=== PATIENT | male | born 1965 | race African-American/Black ===

== ENCOUNTER 2016-04-19 10:46 | Emergency (ER) | payer OTHER ==
[~2016-04-19] VITALS: Wt 105.0 kg
[~2016-04-19 10:46] MED LIST: ACET500C5 PO; BACTDS PO; CEPH-443 PO; HYDR-3498 PO; IBUP-1542 PO; IBUP800T25 PO; ULT50 PO
[2016-04-19 10:54] VITALS: Wt 105.0 kg
[2016-04-19] MEDS ORDERED: SOD CHLORIDE 0.9% 1,000 ML IV STA (11:25)
[2016-04-19] MEDS ORDERED: CLINDAMYCIN 600 MG/D5W (PMX) 50 ML IVPB SCH (11:30)
[2016-04-19] MEDS ORDERED: CLIN-73 PO (11:47)
[2016-04-19] MEDS ORDERED: NAPR-260 PO (11:47)
[2016-04-19] MEDS ORDERED: HYDR-906 PO (11:47)
[2016-04-19 13:06] VITALS: BP 117/66; PULSE 79; RESP 16; TEMP 97.8
--- NOTE | 2016-04-19 17:11 | ERD ---
DATE OF SERVICE: 04/19/2016 HISTORY OF PRESENT ILLNESS: The patient is a 50-year-old male coming in complaining of right knee p ain for the last 2 months; however, he feels that over the last 2 days, it has gotten worse. He has noted some swelling over his right knee. He states it hurts to move. He has had no fevers. He logan s not taken medications for the symptoms. He has never had this before. He works as a construction tech and kneels frequently. He does not wear knee pads. He is up-to-date on his tetanus shot. PAST MEDICAL HISTORY: Denies medical problems. ALLERGIES: DENIES ALLERGIES TO MEDICATIONS. PAST SURGICAL HISTORY: Appendectomy. SOCIAL HISTORY: Denies. REVIEW OF SYSTEMS: A 12-point review of systems was done. Refer to HPI for positives, all other sy stems negative. PHYSICAL EXAMINATION VITAL SIGNS: Temperature 98, pulse 78. Blood pressure is 134/78, respiratory rate 18, O2 sat 99% o n room air. Pain intensity is 0/10. GENERAL: The patient is well-appearing, well-nourished, in no acute distress. HEART: Regular rate and rhythm. No murmurs, clicks, rubs or gallops. No S3 or S4. CHEST: Clear to auscultation bilaterally. There are no rales, wheezes or rhonchi. HEENT: Atraumatic. Conjunctivae are pink. Pupils equal, round, and reactive to light. There is no s cleral icterus. Tympanic membranes clear bilaterally. Oropharynx clear. No nystagmus or photophobia . ABDOMEN: Soft, nontender and nondistended. Good bowel sounds. No rebound or guarding. No gross bertha tonitis. No gross organomegaly or masses. No Faith sign or McBurney point tenderness. EXTREMITIES: The patient has tenderness to palpation over the frontal aspect of the right knee over the knee bursa. There is no swelling or warmth to the joint space. The patient has normal flexion /extension at the knee joint with no limitations. No valgus or varus deformity. No calf tenderness . SKIN: Mild erythema noted to the anterior portion of the right knee. There is no lymphatic streak ing. DIAGNOSIS: Knee bursitis. EMERGENCY ROOM COURSE: The patient was given a liter of normal saline and IV clindamycin. The camilo ent does not need tetanus shot today. MEDICAL DECISION MAKING: I have low suspicion for septic joint. The patient does not have pain wit hin the joint space. The patient's pain is localized over the bursa of the right knee. He will be treated with antibiotics. I have low suspicion for DVT, low suspicion for deep tracking infection o r lymphatic infection, low suspicion for compartment syndrome. DISCHARGE: The patient is discharged stable. The patient given prescription for clindamycin, [place] , and naproxen; told to follow up with primary care within 1 to 2 days for reevaluation. The patien t was told if symptoms progress or worsen, to return to the ER. All other questions answered at barb e of discharge. Discharge summary given at the time of departure. The patient understood and compl ied with plan. Dictated By: PEBBLES RECINOS PA for YARIEL GEE/MANISH Conf#: [id number] DID#: [id number]
== END 2016-04-19 13:07 | disposition home or self-care (01) ==
LOC: FTE 10:46
DX: M70.51 Other bursitis of knee, right knee (principal); Y93.9 Activity, unspecified
CPT/HCPCS: 96374; J7030; Z7502; Z7610

== ENCOUNTER 2016-05-15 10:55 | Emergency (ER) | payer OTHER ==
[~2016-05-15] VITALS: Wt 106.0 kg
[~2016-05-15 10:55] MED LIST changes: +CLIN-73 PO; +HYDR-906 PO; +NAPR-260 PO; +TRAM50TA2 PO; -ULT50 PO
[2016-05-15 12:21] LABS: BASOPHIL # 0.1 10^3/ul (0.0-0.1); BASOPHILS % 0.5 % (0.0-2.0); EOSINOPHILS # 0.2 10^3/ul (0.0-0.5); EOSINOPHILS % 1.5 % (0.0-7.0); HEMATOCRIT 41.3 % (42.0-52.0); HEMOGLOBIN 13.9 g/dl (14.0-18.0); LYMPHOCYTES # 2.5 10^3/ul (0.8-2.9); LYMPHOCYTES % 22.4 % (15.0-51.0); MEAN CORPUSCULAR HEMOGLOBIN 30.4 pg (29.0-33.0); MEAN CORPUSCULAR HGB CONC 33.5 g/dl (32.0-37.0); MEAN CORPUSCULAR VOLUME 90.7 fl (82.0-101.0); MONOCYTE # 1.1 10^3/ul (0.3-0.9); MONOCYTES % 9.9 % (0.0-11.0); NEUTROPHIL # 7.3 10^3/ul (1.6-7.5); NEUTROPHILS % 65.7 % (39.0-77.0); PLATELET COUNT 236 10^3/UL (140-440); RED BLOOD COUNT 4.56 10^6/ul (4.70-6.10); UNCORRECTED WBC 11.1 10^3/ul (4.8-10.8); WHITE BLOOD COUNT 11.1 10^3/ul (4.8-10.8)
[2016-05-15 12:27] LABS: ALBUMIN 3.3 g/dl (3.3-4.9); POTASSIUM 4.8 mmol/L (3.5-5.1)
[2016-05-15 12:29] LABS: BILIRUBIN,INDIRECT 0.5 mg/dl (0-1.1); BILIRUBIN,TOTAL 0.5 mg/dl (0.2-1.3); CREATININE 1.04 mg/dl (0.61-1.24)
[2016-05-15 12:30] LABS: ALBUMIN/GLOBULIN RATIO 0.82; CONDITION 1; LH ANALYZER COMMENTS 1; TOTAL PROTEIN 7.3 g/dl (6.1-8.1)
[2016-05-15 12:31] LABS: CALCIUM 8.9 mg/dl (8.4-10.2)
[2016-05-15 12:33] LABS: C-REACTIVE PROTEIN 4.5 mg/dl (0.0-0.9)
--- NOTE | 2016-05-15 13:32 | RADRPT ---
PROCEDURE: XR Knee 3 Views. CLINICAL INDICATION: Right knee pain TECHNIQUE: AP, tunnel and oblique view of the right knee were obtained. The images reviewed on a PACS workstation. COMPARISON: None. FINDINGS: The osseous structures are intact. No destructive bony lesions are observed. Mild narrowing of the lateral joint compartment is identified. Soft tissues are unremarkable. 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 If there is high clinical suspicion for traumatic injury, further evaluation with CT should be consi dered. If further characterization is needed CT or MRI could be helpful. RPTAT: AA .Matthew Valladares MD, Date Time Electronically viewed and signed by .Matthew Valladares MD, on 05/15/2016 13:31 .P/
[2016-05-15] MEDS ORDERED: BACTDS PO (13:39)
[2016-05-15] MEDS ORDERED: CEPH-443 PO (13:40)
[2016-05-15] MEDS ORDERED: IBUP-1542 PO (13:40)
--- NOTE | 2016-05-15 13:48 | ERD ---
ER Documentation Chief Complaint Date/Time DATE: 05/15/16 TIME: 13:44 Chief Complaint SWELLING AND REDNESS 4 WKS AGO. NO RECENT FEVERS DRAINAGE NOTED. HPI Patient is 51-year-old male with a past medical history of bursitis of the right knee who presents to the emergency department with swelling and redness to his right anterior knee. Patient states he was seen here in the ER approximately 1 month ago and diagnosed with bursitis. At that time was prescribed clindamycin. Patient reports taking full course of antibiotics. Patient states that over the last 4 weeks since previous ER visit his swelling and redness has been getting worse. Patient has some "yellow drainage" from anterior knee. Patient reports moderate pain. Patient is able to ambulate without any difficulty. Patient is able to bend his knee with minimal pain.Patient denies any new trauma or falls. Patient denies any fever, chills, nausea, vomiting, loss of consciousness. 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 Patient denies wearing knee pads. Patient reports history of "shattering right kneecap," however denies surgical repair. ROS All systems reviewed and are negative except as per history of present illness. Medications Home Meds Active Scripts Ibuprofen* (Motrin*) 600 Mg Tab, 600 MG PO Q6, #30 TAB Prov:DANIKA FERNANDEZ PA-C 05/15/16 Cephalexin* (Keflex*) 500 Mg Capsule, 500 MG PO TID for 10 Days, CAP Prov:DANIKA FERNANDEZ PA-C 05/15/16 Sulfamethoxazole-Trimethoprim* (Bactrim* DS) 800-160 Mg Tab, 1 TAB PO BID for 10 Days, TAB Prov:DANIKA FERNANDEZ PA-C 05/15/16 Hydrocodone/Acetaminophen (Silt 5-325 Tablet) 1 Each Tablet, 1 TAB PO Q6H Y for PAIN, #7 TAB Prov:JAH RECINOS PA-C 04/19/16 Naproxen* (Naprosyn*) 500 Mg Tablet, 500 MG PO BID Y for PAIN AND/OR INFLAMMATION, #30 TAB Prov:JAH RECINOS PA-C 04/19/16 Clindamycin Hcl* (Clindamycin Hcl*) 300 Mg Capsule, 600 MG PO TID for 14 Days, CAP Prov:JAH RECINOSC 04/19/16 Acetaminophen* (Tylophen*) 500 Mg Capsule, 1 CAP PO Q6H Y for PAIN AND OR ELEVATED TEMP, #20 CAP Prov:RONAK CORTES NP 02/13/16 Cephalexin* (Keflex*) 500 Mg Capsule, 500 MG PO QID for 5 Days, CAP Prov:RONAK CORTES NP 02/13/16 Sulfamethoxazole-Trimethoprim* (Bactrim* DS) 800-160 Mg Tab, 1 TAB PO BID for 7 Days, TAB Prov:JORDANA AGUILERAC 12/16/15 Cephalexin* (Keflex*) 500 Mg Capsule, 500 MG PO QID for 7 Days, CAP Prov:JORDANA AGUILERAC 12/16/15 Ibuprofen* (Motrin*) 800 Mg Tab, 800 MG PO Q6, #30 TAB Prov:JORDANA AGUILERAC 12/16/15 Tramadol HCl (Tramadol HCl) 50 Mg Tablet, 50 MG PO Q4 Y for PAIN, #20 TAB Prov:JORDANA AGUILERAC 12/16/15 Hydrocodone Bit-Acetaminophen* (Silt*) 5-325 Mg Tab, 1 TAB PO Q6 Y for PAIN, # 20 TAB Prov:RONAK CORTES NP 10/15/15 Ibuprofen* (Motrin*) 600 Mg Tab, 600 MG PO Q6H Y for PAIN AND OR ELEVATED TEMP, #30 TAB Prov:RONAK CORTES NP 10/15/15 Cephalexin* (Keflex*) 500 Mg Capsule, 500 MG PO QID for 10 Days, CAP Prov:RONAK CORTES NP 10/15/15 Sulfamethoxazole-Trimethoprim* (Bactrim* DS) 800-160 Mg Tab, 1 TAB PO BID for 10 Days, TAB Prov:RONAK CORTES NP 10/15/15 Sulfamethoxazole-Trimethoprim* (Bactrim* DS) 800-160 Mg Tab, 1 TAB PO BID, #14 TAB 0 Refills Prov:YUNG PARRISHC 07/09/15 Cephalexin* (Keflex*) 500 Mg Capsule, 500 MG PO QID, #28 CAP 0 Refills Prov:FRANCOISYUNG EMILY 07/09/15 Allergies Allergies: Coded Allergies: No Known Allergy (Unverified , 05/15/16) PMhx/Soc History of Surgery: Yes (appendectomy) Anesthesia Reaction: No Hx Neurological Disorder: No Hx Respiratory Disorders: No Hx Cardiac Disorders: No Hx Psychiatric Problems: No Hx Miscellaneous Medical Probl: Yes (R knee bursitis) Hx Alcohol Use: No Hx Substance Use: No Hx Tobacco Use: Yes Smoking Status: Current every day smoker FmHx Family History: No diabetes Physical Exam Vitals Vital Signs Date Time Temp Pulse Resp B/P Pulse Ox O2 Delivery O2 Flow Rate FiO2 05/15/16 14:05 90 05/15/16 10:57 98.1 110 22 147/84 99 Physical Exam GENERAL: Well-developed, well-nourished male. Appears in no acute distress. HEAD: Normocephalic, atraumatic. EYES: Pupils are equally reactive bilaterally. EOMs grossly intact. No conjunctival erythema. ENT: Moist mucous membranes. No uvula deviation. No kissing tonsils. NECK: Supple. No meningismus. Normal range of motion of the neck. LUNG: Clear to auscultation bilaterally. No rhonchi, wheezing, rales or coarse breath sounds. HEART: Regular rate and rhythm. No murmurs, rubs or gallops. EXTREMITIES: Equal pulses bilaterally. No peripheral clubbing, cyanosis or edema. No unilateral leg swelling. NEUROLOGIC: Alert and oriented. Moving all four extremities without any difficulty. Normal speech. Steady gait. SKIN: Normal color. Warm and dry. No rashes or lesions. RIGHT KNEE: No obvious deformity. +Erythema and thickening of anterior knee skin. +Swelling to anterior knee. No warmth. No joint effusion. Purulent discharge expressed from anterior knee. Full ROM of knee. Tenderness to palpation of the anterior knee. No valgus/varus instability. Sensation intact to light touch. Neurovascularly intact. (Able to plantarflex, dorsiflex, purnima foot, invert foot, raise big toe.) 2+ DP and DT pulses. No tender to palpation of thigh, tibia and fibula. No calf tenderness. Result Diagram: 05/15/16 1205 05/15/16 1205 Results 24 hrs Laboratory Tests Test 05/15/16 12:05 Alanine Aminotransferase (ALT/SGPT) 43IU/L Albumin 3.3g/dl Albumin/Globulin Ratio 0.82 Alkaline Phosphatase 105IU/L Anion Gap 13 Aspartate Amino Transf (AST/SGOT) 25IU/L Basophils # 0.110^3/ul Basophils % 0.5% Blood Morphology Comment Blood Urea Nitrogen 18mg/dl C-Reactive Protein 4.5mg/dl Calcium Level 8.9mg/dl Carbon Dioxide Level 31mmol/L Chloride Level 103mmol/L Creatinine 1.04mg/dl Direct Bilirubin 0.00mg/dl Eosinophils # 0.210^3/ul Eosinophils % 1.5% Globulin 4.00g/dl Glucose Level 86mg/dl Hematocrit 41.3% Hemoglobin 13.9g/dl Indirect Bilirubin 0.5mg/dl Lymphocytes # 2.510^3/ul Lymphocytes % 22.4% Mean Corpuscular Hemoglobin 30.4pg Mean Corpuscular Hemoglobin Concent 33.5g/dl Mean Corpuscular Volume 90.7fl Mean Platelet Volume 8.0fl Monocytes # 1.110^3/ul Monocytes % 9.9% Neutrophils # 7.310^3/ul Neutrophils % 65.7% Nucleated Red Blood Cells # 0.010^3/ul Nucleated Red Blood Cells % 0.0/100WBC Platelet Count 61568^3/UL Potassium Level 4.8mmol/L Red Blood Count 4.5610^6/ul Red Cell Distribution Width 15.0% Sodium Level 142mmol/L Total Bilirubin 0.5mg/dl Total Protein 7.3g/dl White Blood Count 11.110^3/ul Procedures/MDM ED COURSE: The patient was stable throughout ED course. I kept the patient and/or family informed of laboratory and diagnostic imaging results throughout the ED course. DIAGNOSTIC IMAGING: Read by radiologist. DIAGNOSTIC IMAGING REPORT Patient: LEROY WATERMAN : 1965 Age: 51 Sex: M MR #: [id number] DOS: 05/15/16 1241 Ordering MD: DANIKA FERNANDEZ PA-C Location: [facility] Room/Bed: PROCEDURE: XR Knee 3 Views. CLINICAL INDICATION: Right knee pain TECHNIQUE: AP, tunnel and oblique view of the right knee were obtained. The images reviewed on a PACS workstation. COMPARISON: None. FINDINGS: The osseous structures are intact. No destructive bony lesions are observed. Mild narrowing of the lateral joint compartment is identified. Soft tissues are unremarkable. 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 If there is high clinical suspicion for traumatic injury, further evaluation with CT should be considered. If further characterization is needed CT or MRI could be helpful. RPTAT: AA .Matthew Valladares MD, MD Date Time Electronically viewed and signed by .Matthew Valladares MD, MD on 05/15/2016 13:31 .P/ CC: DANIKA FERNANDEZ PA-C MEDICAL DECISION MAKING: This is a 51-year-old male who presents with right knee pain, swelling, erythema. Patient was seen here in the emergency department approximately one month ago for similar symptoms and diagnosed with bursitis. Patient states he completed a full course of clindamycin at that time. Patient states his symptoms are getting worse. Vital signs were reviewed. Patient was afebrile. Knee exam revealed erythema and thickening of anterior knee surface. +Purulent discharge noted. No joint effusion. No warmth. Patient had normal ROM of the knee, able to extend and flex right knee without difficulty. Right knee xrays showed mild osteoarthritis in the lateral joint compartment. Patient had a WBC count 11.1. CRP was 4.5. Given these findings, the patient's presentation is most consistent with right knee osteoarthritis and knee bursitis vs septic joint. Patient was examined by supervising physician, Dr. Baez. Dr. Baez and myself had a conversation with the patient about his presentation and current symptoms. Given that the patient has normal range of motion and no joint effusion, our suspicion for septic joint is low at this time, however the patient does understand that we are unable to rule out septic joint at this time. Given that the patient recently took PO antibiotics with no improvement of symptoms, patient was offered inpatient admission and IV antibiotics. Patient stated that he wished to try PO antibiotics again, and would return to the ED in for 2-3 days if symptoms do not improve or worsen. At this time, patient will be treated on an outpatient basis per his requests. I have a much lower clinical concern for femur fracture, patella fracture, tibial plateau fracture, gout, popliteal cyst , patellar tendinitis, osteomyelitis, deep abscess, DVT or compartment syndrome. At this time, unable to rule out any meniscus and knee ligament injuries. PRESCRIPTIONS: Ibuprofen, Keflex, Bactrim DISCHARGE: At this time, patient is stable for discharge and outpatient management. Patient advised to monitor his symptoms closely. Patient was advised to start PO antibiotics JONH. Patient was advised to the return to the ED in 2-3 days if his symptoms do not improve or worsen. RICE therapy and ROM exercises were advised to avoid stiffness. I have instructed the patient to follow-up with his/ her primary care physician in 1-2 days. I have discussed with the patient the possibility of needing to see an ingredient specialist for further workup and imaging if the pain persists. I have instructed the patient to promptly return to the ER for any new or worsening symptoms including increased pain, swelling, redness, warmth or fever. The patient and/or family expressed understanding of and agreement with this plan. All questions were answered. Home care instructions were provided. Departure Diagnosis: Primary Impression: Bursitis Condition: Stable Patient Instructions: What Is Bursitis? Referrals: COMMUNITY CLINICS YOU HAVE RECEIVED A MEDICAL SCREENING EXAM AND THE RESULTS INDICATE THAT YOU DO NOT HAVE A CONDITION THAT REQUIRES URGENT TREATMENT IN THE EMERGENCY DEPARTMENT. FURTHER EVALUATION AND TREATMENT OF YOUR CONDITION CAN WAIT UNTIL YOU ARE SEEN IN YOUR DOCTORS OFFICE WITHIN THE NEXT 1-2 DAYS. IT IS YOUR RESPONSIBILITY TO MAKE AN APPOINTMENT FOR FOLOW-UP CARE. IF YOU HAVE A PRIMARY DOCTOR --you should call your primary doctor and schedule an appointment IF YOU DO NOT HAVE A PRIMARY DOCTOR YOU CAN CALL OUR PHYSICIAN REFERRAL HOTLINE AT IF YOU CAN NOT AFFORD TO SEE A PHYSICIAN YOU CAN CHOSE FROM THE FOLLOWING [facility] [address] [facility] [address] [facility] [facility] [address] [facility] [address] [facility] [address] [facility] [address] [facility] [facility] YOU HAVE RECEIVED A MEDICAL SCREENING EXAM AND THE RESULTS INDICATE THAT YOU DO NOT HAVE A CONDITION THAT REQUIRES URGENT TREATMENT IN THE EMERGENCY DEPARTMENT. FURTHER EVALUATION AND TREATMENT OF YOUR CONDITION CAN WAIT UNTIL YOU ARE SEEN IN YOUR DOCTORS OFFICE WITHIN THE NEXT 1-2 DAYS. IT IS YOUR RESPONSIBILITY TO MAKE AN APPOINTMENT FOR FOLOW-UP CARE. IF YOU HAVE A PRIMARY DOCTOR --you should call your primary doctor and schedule and appointment IF YOU DO NOT HAVE A PRIMARY DOCTOR YOU CAN CALL OUR PHYSICIAN REFERRAL HOTLINE AT . IF YOU CAN NOT AFFORD TO SEE A PHYSICIAN YOU CAN CHOSE FROM THE FOLLOWING [facility] INSTIT[facility]IONS: [facility] [address] [place] [address] [facility] [address] [place], [place] [id number] [place] [address] [address] [place] [address] [facility] Hours: Mon-Fri 9:00 AM - 5:00 PM Additional Instructions: At this time, unable to rule out septic joint. Patient wishes to start p.o. antibiotics at this time. Patient is in agreement to return to the emergency department in 2-3 days if his symptoms worsen while taking p.o. antibiotics. Patient understands that he will require IV antibiotics if his symptoms do not improve. She advised to complete full course of antibiotics. Call your primary care doctor TOMORROW for an appointment during the next 1-2 days.See the doctor sooner or return here if your condition worsens before your appointment time. DANIKA FERNANDEZ PA-C May 15, 2016 13:47
[2016-05-15 14:05] VITALS: PULSE 90
== END 2016-05-15 14:10 | disposition home or self-care (01) ==
LOC: FTE 10:55
DX: M70.51 Other bursitis of knee, right knee (principal); F17.210 Nicotine dependence, cigarettes, uncomplicated; Y93.H3 Activity, building and construction
CPT/HCPCS: 36415; 73562; 80053; 85025; 86140; Z7502

== ENCOUNTER 2017-03-01 00:08 | Emergency (ER) | payer OTHER ==
[~2017-03-01] VITALS: Ht 188 cm; Wt 105.0 kg
[2017-03-01 00:11] VITALS: Ht 188 cm; Wt 105.0 kg
[2017-03-01] MEDS ORDERED: HYDROCODONE/APAP (10/325) TAB PO ONE (01:00)
--- NOTE | 2017-03-01 01:00 | RADRPT ---
PROCEDURE: CT Brain without contrast. CLINICAL INDICATION: Trauma. TECHNIQUE: A CT of the brain was performed utilizing axial imaging from the skull base through the vertex without IV contrast. Multiplanar reformatted images were made. Images were reviewed on a [id number] workstation. The CTDIvol is 45.01 mGy and the DLP is 810.25 mGycm. DICOM images are available. One or more of the following dose reduction techniques were utilized: 1.) Automated exposure control 2.) Adjustment of the mA +/- kV according to patient's size 3.) Use of iterative reconstruction technique. COMPARISON: None FINDINGS: There is no intracranial hemorrhage, mass effect, or midline shift. No extra-axial fluid collection is seen. The ventricles and sulci are normal in size and configuration. The density of the brain is normal, and the langley white matter differentiation appears well-preserved. The visualized paranasal sinuses and osseous structures are grossly unremarkable. IMPRESSION: 1. No evidence of acute intracranial pathology. 2. The brain is normal in appearance. RPTAT: UU Physician Karen Date Time Electronically viewed and signed by Physician Karen on 03/01/2017 01:00 RS/
--- NOTE | 2017-03-01 01:24 | RADRPT ---
PROCEDURE: X-ray left hand. CLINICAL INDICATION: Left hand trauma. TECHNIQUE: 3 views left hand. COMPARISON: 10/15/2015 FINDINGS: Study is limited secondary to demineralization and flexion of the fingers. No evident acute fracture otherwise identified. Soft tissues unremarkable. IMPRESSION: No acute fracture. RPTAT: UU Physician Karen Date Time Electronically viewed and signed by Nick Reza Physician on 03/01/2017 01:24 RS/
--- NOTE | 2017-03-01 01:26 | RADRPT ---
AMENDMENT: 03/01/2017 1:31:06 AM Garry Reza Md ADDENDUM: Correction: FINDINGS: Nondisplaced fracture of the midshaft left ulna. There is a likely butterfly fracture fra gment. On today's left elbow series there is evidence of fracture comminution. IMPRESSION: Nondisplaced fracture midshaft left ulna, with likely butterfly fracture fragment. PROCEDURE: X-ray left forearm. CLINICAL INDICATION: Trauma to the left forearm. TECHNIQUE: 2 views left forearm. COMPARISON: 07/09/2015. FINDINGS: Nondisplaced fracture of the midshaft left radius. There is a likely butterfly fracture fragment. Re maining osseous structures without acute fracture. IMPRESSION: Nondisplaced fracture of the midshaft left radius, with likely butterfly fracture fragment. RPTAT: UU Physician Karen Date Time Electronically viewed and signed by Physician Karen on 03/01/2017 01:33 RS/
--- NOTE | 2017-03-01 01:31 | RADRPT ---
PROCEDURE: X-ray left elbow. CLINICAL INDICATION: Trauma TECHNIQUE: 3 views left elbow COMPARISON: Left elbow plain film series dated 07/09/2015 FINDINGS: Nondisplaced comminuted fractures of the midshaft left ulna. No acute fracture or dislocation left e lbow. Small proximal ulnar enthesophyte. IMPRESSION: Nondisplaced comminuted fractures of the mid shaft left ulna, without acute fracture in the left elb ow. RPTAT: UU Physician Karen Date Time Electronically viewed and signed by Nick Reza Physician on 03/01/2017 01:30 RS/
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
[2017-03-01] MEDS ORDERED: IBUP800T25 PO (01:56)
[2017-03-01] MEDS ORDERED: HYDR-902 PO (01:56)
[2017-03-01 04:13] VITALS: BP 125/74; PULSE 82; RESP 16
== END 2017-03-01 05:23 | disposition home or self-care (01) ==
LOC: FTE 00:08
DX: S52.255A Nondisplaced comminuted fracture of shaft of ulna, left arm, initial encounter for closed fracture (principal); S52.355A Nondisplaced comminuted fracture of shaft of radius, left arm, initial encounter for closed fracture; R51 Headache; Y04.8XXA Assault by other bodily force, initial encounter
CPT/HCPCS: 29105; 70450; 73080; 73090; 73130; Z7502; Z7610

== ENCOUNTER 2017-09-17 09:16 | Emergency (ER) | END 2017-09-17 11:54 | disposition home or self-care (01) ==